=== PATIENT | female | born 1955 | race Caucasian/White ===

== ENCOUNTER 2017-10-21 17:34 | Emergency (ER) | payer OTHER ==
[~2017-10-21] VITALS: Ht 162.6 cm; Wt 109.2 kg
[2017-10-21 18:20] VITALS: BP 158/80
[2017-10-21] MEDS ORDERED: fentaNYL/PF 50MCG/1 ML 2ML syringe ONE (18:33)
[2017-10-21] MEDS ORDERED: LIDOcaine Viscous 15ml cup ONE (18:34)
[2017-10-21] MEDS ORDERED: MIDAZolam 5mg/5ml vial ONE (18:34)
[2017-10-21 19:08] VITALS: BP 133/73
[2017-10-21 19:16] VITALS: BP 123/77
[2017-10-21 19:26] VITALS: BP 120/77
[2017-10-21 19:36] VITALS: BP 132/69
[2017-10-21 19:54] VITALS: BP 138/79
== END 2017-10-21 21:39 | disposition home or self-care (01) ==
LOC: ER 17:36
DX: T18.128A Food in esophagus causing other injury, initial encounter (principal); X58.XXXA Exposure to other specified factors, initial encounter; Y93.89 Activity, other specified; Y92.89 Other specified places as the place of occurrence of the external cause; Y99.8 Other external cause status
CPT/HCPCS: 43247; 99284; J2250; J3010; J7030; A4620; G0500